=== PATIENT | male | born 1960 | race Caucasian/White ===

== ENCOUNTER 2016-07-16 05:29 | Emergency (ER) | payer OTHER | END 2016-07-16 08:06 | disposition home or self-care (01) | LOC: FER 05:29 | DX: M54.5 Low back pain (principal); E11.9 Type 2 diabetes mellitus without complications; G89.29 Other chronic pain; X50.0XXA Overexertion from strenuous movement or load, initial encounter; Y92.009 Unspecified place in unspecified non-institutional (private) residence as the place of occurrence of the external cause | CPT/HCPCS: J1885 ==